=== PATIENT | male | born 1990 | race Caucasian/White ===

== ENCOUNTER 2017-09-04 08:53 | Day surgery (SDC) | payer BC ==
[~2017-09-04] VITALS: Ht 170.2 cm; Wt 68.0 kg
--- NOTE | 2017-09-04 12:53 | NUR ---
09/04/17 Logan3 Cheyenne Jones 124-PATIENT ARRIVED TO PACU ON 2L NC O2 SAT 100%. PATIENT AWAKE DROWSY. ENCOURAGED TO TAKE DEEP BREATHES. 3 LAP SITES SMALL AMT OF DRAINAGE ON GAUZE TO ONE SITE. ST 100. PATIENT DOZING BACK TO SLEEP.
--- NOTE | 2017-09-04 13:34 | NUR ---
FAMILY @ BS. CALL LIGHT W/IN REACH. PILLOW REMOVED FROM BEHIND PATIENT'S HEAD PER HIS REQUEST. ICED WATER GIVEN.
[2017-09-04] MEDS ORDERED: NORCO 5-325 TA1 EACH PO (13:51)
--- NOTE | 2017-09-04 14:21 | OR ---
[facility] [address], [place] [address] Signed DATE OF OPERATION: 09/04/2017 SURGEON: Anai Myers MD PREOPERATIVE DIAGNOSIS: Cholecystitis with cholelithiasis (sludge). POSTOPERATIVE DIAGNOSIS: Cholecystitis with cholelithiasis (sludge). PROCEDURE: Laparoscopic cholecystectomy with intraoperative cholangiogram. ESTIMATED BLOOD LOSS: None. FINDINGS: Nevaeh had some mild cholesterolosis of his gallbladder. We can see that his cystic duct, hepatic duct and the common bile duct were all quite thin. However, we saw no filling defects and the contrast flowed readily into the duodenum. He did have just a little sludge in his gallbladder. INDICATIONS: Nevaeh is a 27-year-old young man, who has had trouble with right upper quadrant abdominal pain. He said it is about a 4/10. He has had it for about a year. He said it is getting more intense and more frequent. He said it often radiates to his back and sometimes over to the midline. He went to his primary care provider. His labs showed a bilirubin up a little, but the other labs were fine. An ultrasound showed minimal sludge in the gallbladder, but no other issues. His symptoms continued, so he was asked to see me as a general surgeon. In the meantime, he has been on the Internet reading and has made himself very knowledgeable with respect to the gallbladder. In the office, I gave Nevaeh a brochure on the gallbladder and we looked at that together in detail in the office. We had a long discussion regarding the location and function of the gallbladder. We reviewed his labs and his ultrasound findings. We had discussed conservative treatment versus surgical treatment. Initially, he wanted to continue on conservative treatment and was making every effort to cut out fatty foods in his diet, however, his symptoms continued. He had decided he wanted to go ahead and have his gallbladder removed. He understands laparoscopic versus open cholecystectomy. He understands expected intraop and postop course. There is risk of surgery including, but not limited to, bleeding, infection, scarring, change in contour of the skin, damage to Electronically Signed By: ANAI MYERS MD 09/04/17 1421 PATIENT NAME: NEVAEH CARRANZA OPERATIVE REPORT DATE OF : [birth year] REPORT #: [id number] PHYSICIAN: ANAI MYERS MD PCP: SAGAR SILVEIRA MD REPORT IS CONFIDENTIAL AND NOT TO BE RELEASED WITHOUT AUTHORIZATION [facility] [address], [place] [address] Signed bowel, damage to main bile duct, incisional hernias, and inability to remove his symptoms. He had expressed understanding and wished to proceed. PROCEDURE NOTE: Nevaeh was taken into our operating room and placed in the supine position under general endotracheal tube anesthesia. He was given preoperative antibiotics along with subcutaneous heparin. SCDs were utilized. He was then prepped and draped in the usual sterile fashion. After this, all trocars were placed in usual positions under direct visualization of camera without difficulty. His gallbladder was grasped and elevated in the right upper quadrant. He did have some adhesions of the omentum to the gallbladder. These had to be taken down bluntly and with careful cautery. The triangle of Calot was dissected free and I placed 2 clips on the cystic artery and it was divided sharply with the scissors. We then inserted the intraoperative cholangiocatheter into the cystic duct. There was just enough room to pass the catheter and we held in place with clip. The intraoperative cholangiogram was then performed. The cystic duct stump was then secured with a PDS Endoloop and 2 clips were placed on the cystic duct stump to matthew its location. After this, the gallbladder was carefully removed from the gallbladder fossa with the help of the cautery and placed into an EndoCatch bag. The right upper quadrant was then irrigated and suctioned out until clear. We used our laparoscopic suturing device to pass 0 Vicryl suture on either side of the fascia of the subxiphoid trocar site. This was tied down to close this fascia primarily. After this, all the trocars were removed and all the gas was allowed to escape. We closed the fascia of the supraumbilical trocar site with interrupted [id number] and simple 0 Vicryl sutures. Local anesthetic was copiously injected into all trocar sites. The trocar sites were then irrigated and suctioned out until clear. The skin and dermis of each trocar site were then closed with interrupted 3-0 Monocryl sutures. We used a Steri-Strip on the two 5 mm right subcostal trocar sites to help hold the skin together. Dry gauze and tape were then applied to all incisions. Nevaeh's gallbladder was opened on the back table by our circulating nurse. The findings were as above. After this, Nevaeh was awakened from his anesthesia, extubated in the OR, and taken to recovery room in stable condition. Anai Myers MD ALB/MODL /[id number] Electronically Signed By: ANAI MYERS MD 09/04/17 1421 PATIENT NAME: NEVAEH CARRANZA OPERATIVE REPORT DATE OF : [birth year] REPORT #: [id number] PHYSICIAN: ANAI MYERS MD PCP: SAGAR SILVEIRA MD REPORT IS CONFIDENTIAL AND NOT TO BE RELEASED WITHOUT AUTHORIZATION [facility] [address], [place] [address] Signed cc: MD Sagar Cage MD Copies: ANAI MYERS MD, MALCOLM MD ~ Electronically Signed By: ANAI MYERS MD 09/04/17 1421 PATIENT NAME: NEVAEH CARRANZA OPERATIVE REPORT DATE OF : [birth year] REPORT #: [id number] PHYSICIAN: ANAI MYERS MD PCP: SAGAR SILVEIRA MD REPORT IS CONFIDENTIAL AND NOT TO BE RELEASED WITHOUT AUTHORIZATION
--- NOTE | 2017-09-04 14:42 | NUR ---
HOB ELEVATED. PUDDING GIVEN. PT IS EATING THE PUDDING AND TOLERATING THAT WELL. FAMILY REMAINS @ BS. CALL LIGHT REMAINS W/IN REACH.
--- NOTE | 2017-09-04 15:38 | NUR ---
PT DENIES ADD'L NEEDS @ THIS TIME.
--- NOTE | 2017-09-04 16:19 | NUR ---
PT UP TO BR W/RN STANDBY. PT AMBULATES WELL AND DENIES DIZZINESS. PT VOIDS AND IS BACK IN BED. IV IS DC AND PATIENT THEN REPORTS HE IS NAUSEOUS. PATIENT LAYS BACK IN BED AND ETOH WIPE IS GIVEN. CALL LIGHT W/IN REACH. FAMILY REMAINS @ BS.
--- NOTE | 2017-09-04 16:46 | NUR ---
PATIENT PUSHES THE CALL LIGHT AND REPORTS "MY NAUSEA IS BETTER". DC INSTRUCTIONS GIVEN IN THE PRESENCE OF PATIENT AND HIS SIG OTHER. BOTH VERBALIZE UNDERSTANDING. PATIENT DRESSES SELF IN PRESENCE OF SIG OTHER AND TRANSFERS TO AND PERSONAL VEHICLE AND DOES THAT WELL.
== END 2017-09-04 16:40 | disposition home or self-care (01) ==
LOC: DS 08:53
PROVIDERS: Colon & Rectal Surgery
PROC: BF13YZZ Fluoroscopy of Gallbladder and Bile Ducts using Other Contrast (ICD-10-PCS; 2017-09-04)
PROC: 0FT44ZZ Resection of Gallbladder, Percutaneous Endoscopic Approach (ICD-10-PCS; principal; 2017-09-04 11:19)
DX: K81.1 Chronic cholecystitis (principal); F41.9 Anxiety disorder, unspecified; D64.9 Anemia, unspecified; J45.990 Exercise induced bronchospasm
CPT/HCPCS: 00790; 74300; J0131; J0694; J0735; J1100; J1170; J1644; J1885; J2250; J2405; J2704; J3010; J3475; J7120; Q9967

== ENCOUNTER 2024-06-23 04:33 | Emergency (ER) | payer OTHER ==
[~2024-06-23] VITALS: Ht 170.2 cm; Wt 69.9 kg
[~2024-06-23 04:33] MED LIST: NORCO 5-325 TA1 EACH PO
[2024-06-23 05:01] LABS: BASOPHILS 0.4 % (0-2); HEMATOCRIT 38.3 % (35.0-50.0); HEMOGLOBIN 13.8 g/dL (12.0-18.0); LYMPHOCYTES 54.6 % (24-44); MCHC 36.1 g/dl (30-36); MCV 85.9 fl (81-99); MONOCYTES 6.4 % (0-12); NEUTROPHILS 36.6 % (39-80); PLATELET COUNT 223 K/uL (140-440); RBC 4.46 M/ul (4.3-5.7); RDW 13.3 (10.5-15.0)
[2024-06-23 05:10] LABS: ALBUMIN/GLOBULIN RATIO 1.43 (1.1-2.4); ANION GAP 13.2 (7-21); BILIRUBIN, TOTAL 1.1 mg/dL (0.2-1.0); BUN/CREATININE RATIO 20.61 (6.0-28.6); CALCIUM 8.9 mg/dL (8.5-10.1); CREATININE, SERUM 0.97 mg/dL (0.70-1.30); POTASSIUM 3.2 mmol/L (3.5-5.1); PROTEIN, TOTAL 6.8 g/dL (6.4-8.2)
[2024-06-23 07:26] VITALS: BP 120/78
--- NOTE | 2024-06-23 22:39 | EKG ---
[facility] [address] [facility] [place] [address] Signed Sinus rhythm with 1st degree AV block Otherwise normal ECG No previous ECGs available Confirmed by Cierra Bradley MD () on 06/23/2024 10:39:13 PM Electronically Signed By: CIERRA BRADLEY MD 06/23/242238 PATIENT NAME: NEVAEH CARRANZA Electrocardiogram DATE OF : [birth year] PHYSICIAN: CIERRA BRADLEY MD REPORT #: [id number] REPORT IS CONFIDENTIAL AND NOT TO BE RELEASED WITHOUT AUTHORIZATION
== END 2024-06-23 07:27 | disposition home or self-care (01) ==
LOC: ED 04:33
PROVIDERS: Emergency Medicine
DX: R07.89 Other chest pain (principal); Q23.81 Bicuspid aortic valve
CPT/HCPCS: 36415; 71275; 74175; 80053; 84484; 85025; 93005; 93010; 99285-25; Q9967